=== PATIENT | male | born 1995 | race Caucasian/White ===

== ENCOUNTER 2018-06-15 02:36 | Inpatient (IN) | payer MEDICAID ==
[~2018-06-15] VITALS: Ht 157.5 cm; Wt 59.7 kg
[2018-06-15 03:16] LABS: BASOPHILS % (AUTO) 0.4 % (0.0-2.0); EOSINOPHILS % (AUTO) 1.9 % (1.0-6.0); HEMATOCRIT 46.1 % (41-53); HEMOGLOBIN 15.9 g/dL (13.5-17.5); LYMPHOCYTES # (AUTO) 1.6 K/uL (1.0-4.8); LYMPHOCYTES % (AUTO) 16.6 % (22.0-44.0); MEAN CORPUSCULAR HEMOGLOBIN 32.2 pg (26.0-34.0); MEAN CORPUSCULAR HGB CONC 34.5 G/dL (31.0-37.0); MEAN CORPUSCULAR VOLUME 93 fL (80-100); MONOCYTES # (AUTO) 0.8 K/uL (0.1-1.0); MONOCYTES % (AUTO) 7.8 % (2.0-9.0); NEUTROPHILS # (AUTO) 7.1 K/uL (1.8-7.7); NEUTROPHILS % (AUTO) 73.3 % (40.0-70.0); PLATELET COUNT (AUTO) 373 K/uL (150-450); RED BLOOD CELL COUNT(AUTO) 4.94 MIL/uL (4.50-5.90); RED CELL DISTRIBUTION WIDTH 12.7 % (11.5-14.5)
[2018-06-15 03:22] LABS: ANION GAP 8 mmol/L (8-16); CALCIUM, TOTAL 9.4 mg/dL (8.8-10.5); CARBON DIOXIDE 28 mmol/L (22-29); CHLORIDE 103 mmol/L (98-107); CREATININE 0.86 mg/dL (0.60-1.30); GLOMERULAR FILTR. RATE CALC > 60 mL/min (>60); GLUCOSE,RANDOM 107 mg/dL (70-110); SODIUM SERUM 139 mmol/L (136-145); UREA NITROGEN, BLOOD 16 mg/dL (7-18)
[2018-06-15 03:28] LABS: ALANINE AMINOTRANSFERASE 96 U/L (12-78); ALBUMIN 4.3 g/dL (3.4-5.0); ALKALINE PHOSPHATASE 97 U/L (46-116); ASPARTATE AMINOTRANSFERASE 35 U/L (15-37); BILIRUBIN,TOTAL 0.3 mg/dL (0.1-1.0); TOTAL PROTEIN, SERUM 8.5 g/dL (6.4-8.2)
[2018-06-15 03:29] LABS: AMPHET/METH SCREEN,URINE NEGATIVE (NEGATIVE); BARBITURATE SCREEN, URINE NEGATIVE (NEGATIVE); BENZODIAZEPINES SCREEN,URINE NEGATIVE (NEGATIVE); CANNABINOID SCREEN,URINE NEGATIVE (NEGATIVE); COCAINE SCREEN,URINE NEGATIVE (NEGATIVE); METHADONE SCREEN, URINE NEGATIVE (NEGATIVE); OPIATE SCREEN,URINE NEGATIVE (NEGATIVE)
[2018-06-15 03:34] LABS: PHENCYCLIDINE SCREEN,URINE NEGATIVE (NEGATIVE)
[2018-06-15] MEDS ORDERED: ACETAMINOPHEN 325 MG TABLET PO PRN (11:00)
[2018-06-15] MEDS ORDERED: MAG HYDROX/AL HYDROX/SIMETH ES 30 ML SUSPENSION UDCUP PO PRN (11:00)
[2018-06-15] MEDS ORDERED: GuaiFENesin/D-METHORPHAN [SUGAR-FREE] 200-20MG/10 ML SYRUP UDCUP PO PRN (11:00)
[2018-06-15] MEDS ORDERED: HydrOXYzine PAMOATE 50 MG CAPSULE PO PRN (11:00)
[2018-06-15] MEDS ORDERED: PROMETHAZINE HCL 25 MG TABLET PO PRN (11:00)
[2018-06-15] MEDS ORDERED: LOPERAMIDE HCL 2 MG CAPSULE PO PRN (11:00)
[2018-06-15] MEDS ORDERED: TUBERCULIN, PURIFIED PROTEIN DERIVATIVE 5 TU/0.1 ML SYG ID ONE (11:00)
[2018-06-15] MEDS ORDERED: MAGNESIUM HYDROXIDE SUSPENSION 30 ML UDCUP PO PRN (11:00)
[2018-06-15 16:08] VITALS: BP 121/53
[2018-06-15 20:03] VITALS: BP 122/69
[2018-06-15] MEDS: THIAMINE HCL 100 MG TABLET PO SCH (21:00)
[2018-06-16 00:10] VITALS: BP 117/67
[2018-06-16] MEDS: ZOLPIDEM TARTRATE 10 MG TABLET PO PRN (00:43)
[2018-06-16] MEDS: LORazepam 2 MG TABLET PO PRN (00:43)
[2018-06-16] MEDS: FOLIC ACID 1 MG TABLET PO SCH (09:09)
[2018-06-16] MEDS: NALTREXONE HCL 50 MG TABLET PO SCH (09:10)
[2018-06-16] MEDS: FLUoxetine HCL 20 MG CAPSULE PO SCH (09:10)
[2018-06-16] MEDS: THIAMINE HCL 100 MG TABLET PO SCH ×2 (09:11→16:16)
[2018-06-16] MEDS: MULTIVITAMINS WITH MINERALS, THERAPEUTIC TABLET PO SCH (09:11)
[2018-06-16 09:34] VITALS: BP 124/61
[2018-06-16 16:21] VITALS: BP 108/60
[2018-06-17 00:23] VITALS: BP 128/71
[2018-06-17] MEDS: MULTIVITAMINS WITH MINERALS, THERAPEUTIC TABLET PO SCH (08:25)
[2018-06-17] MEDS: THIAMINE HCL 100 MG TABLET PO SCH ×2 (08:25→16:24)
[2018-06-17] MEDS: FLUoxetine HCL 20 MG CAPSULE PO SCH (08:25)
[2018-06-17] MEDS: FOLIC ACID 1 MG TABLET PO SCH (08:25)
[2018-06-17] MEDS: NALTREXONE HCL 50 MG TABLET PO SCH (08:25)
[2018-06-17 10:17] VITALS: BP 113/61
[2018-06-17 16:10] VITALS: BP 116/80
[2018-06-18 03:07] VITALS: BP 117/61
[2018-06-18] MEDS: FLUoxetine HCL 20 MG CAPSULE PO SCH (08:49)
[2018-06-18] MEDS: FOLIC ACID 1 MG TABLET PO SCH (08:49)
[2018-06-18] MEDS: MULTIVITAMINS WITH MINERALS, THERAPEUTIC TABLET PO SCH (08:49)
[2018-06-18] MEDS: THIAMINE HCL 100 MG TABLET PO SCH ×2 (08:49→16:19)
[2018-06-18] MEDS: NALTREXONE HCL 50 MG TABLET PO SCH (08:49)
[2018-06-18 09:05] VITALS: BP 118/72
[2018-06-18 16:46] VITALS: BP 139/77
[2018-06-18] MEDS: ZOLPIDEM TARTRATE 10 MG TABLET PO PRN (22:02)
[2018-06-19 05:05] VITALS: BP 127/68
[2018-06-19 08:26] VITALS: BP 129/61
[2018-06-19] MEDS: THIAMINE HCL 100 MG TABLET PO SCH ×2 (08:26→16:03)
[2018-06-19] MEDS: FOLIC ACID 1 MG TABLET PO SCH (08:26)
[2018-06-19] MEDS: NALTREXONE HCL 50 MG TABLET PO SCH (08:26)
[2018-06-19] MEDS: MULTIVITAMINS WITH MINERALS, THERAPEUTIC TABLET PO SCH (08:26)
[2018-06-19] MEDS ORDERED: SERTRALINE HCL 50 MG TABLET PO SCH (09:00)
[2018-06-19 16:51] VITALS: BP 122/67
[2018-06-19] MEDS: ZOLPIDEM TARTRATE 10 MG TABLET PO PRN (22:00)
[2018-06-20 06:57] VITALS: BP 119/70
[2018-06-20] MEDS: FOLIC ACID 1 MG TABLET PO SCH (08:16)
[2018-06-20] MEDS: SERTRALINE HCL 100 MG TABLET PO SCH (08:16)
[2018-06-20] MEDS: MULTIVITAMINS WITH MINERALS, THERAPEUTIC TABLET PO SCH (08:16)
[2018-06-20] MEDS: NALTREXONE HCL 50 MG TABLET PO SCH (08:16)
[2018-06-20] MEDS: THIAMINE HCL 100 MG TABLET PO SCH ×2 (08:16→16:24)
[2018-06-20 08:44] VITALS: BP 121/71
[2018-06-20 17:12] VITALS: BP 135/75
[2018-06-20] MEDS: ZOLPIDEM TARTRATE 10 MG TABLET PO PRN (22:16)
[2018-06-21 05:33] VITALS: BP 126/72
[2018-06-21] MEDS: FOLIC ACID 1 MG TABLET PO SCH (08:04)
[2018-06-21] MEDS: MULTIVITAMINS WITH MINERALS, THERAPEUTIC TABLET PO SCH (08:04)
[2018-06-21] MEDS: NALTREXONE HCL 50 MG TABLET PO SCH (08:04)
[2018-06-21] MEDS: THIAMINE HCL 100 MG TABLET PO SCH ×2 (08:04→16:02)
[2018-06-21] MEDS: SERTRALINE HCL 100 MG TABLET PO SCH (08:04)
[2018-06-21 08:19] VITALS: BP 127/61
[2018-06-21] MEDS: BACITRACIN 28.4 GM OINTMENT TP SCH ×2 (09:09→16:02)
[2018-06-21 16:14] VITALS: BP 115/60
[2018-06-22 00:05] VITALS: BP 127/87
[2018-06-22] MEDS: ZOLPIDEM TARTRATE 10 MG TABLET PO PRN ×2 (00:10→21:20)
[2018-06-22 08:08] VITALS: BP 138/65
[2018-06-22] MEDS: SERTRALINE HCL 100 MG TABLET PO SCH (08:35)
[2018-06-22] MEDS: MULTIVITAMINS WITH MINERALS, THERAPEUTIC TABLET PO SCH (08:36)
[2018-06-22] MEDS: NALTREXONE HCL 50 MG TABLET PO SCH (08:36)
[2018-06-22] MEDS: FOLIC ACID 1 MG TABLET PO SCH (08:36)
[2018-06-22] MEDS: THIAMINE HCL 100 MG TABLET PO SCH ×2 (08:36→16:18)
[2018-06-22] MEDS: BACITRACIN 28.4 GM OINTMENT TP SCH ×2 (08:36→16:18)
[2018-06-22 16:08] VITALS: BP 130/71
[2018-06-23 05:21] VITALS: BP 129/75
[2018-06-23 08:26] VITALS: BP 135/60
[2018-06-23] MEDS: THIAMINE HCL 100 MG TABLET PO SCH ×2 (08:30→16:18)
[2018-06-23] MEDS: NALTREXONE HCL 50 MG TABLET PO SCH (08:30)
[2018-06-23] MEDS: FOLIC ACID 1 MG TABLET PO SCH (08:30)
[2018-06-23] MEDS: SERTRALINE HCL 100 MG TABLET PO SCH (08:31)
[2018-06-23] MEDS: MULTIVITAMINS WITH MINERALS, THERAPEUTIC TABLET PO SCH (08:31)
[2018-06-23] MEDS: BACITRACIN 28.4 GM OINTMENT TP SCH ×2 (08:31→16:19)
[2018-06-23] MEDS: ARIPiprazole 2 MG TABLET PO SCH (08:33)
[2018-06-23 12:10] VITALS: BP 126/83
[2018-06-23 16:18] VITALS: BP 139/69
[2018-06-23] MEDS: ZOLPIDEM TARTRATE 10 MG TABLET PO PRN (22:18)
[2018-06-24 01:24] VITALS: BP 117/68
[2018-06-24] MEDS: NALTREXONE HCL 50 MG TABLET PO SCH (08:11)
[2018-06-24] MEDS: THIAMINE HCL 100 MG TABLET PO SCH ×2 (08:11→16:10)
[2018-06-24] MEDS: MULTIVITAMINS WITH MINERALS, THERAPEUTIC TABLET PO SCH (08:11)
[2018-06-24] MEDS: BACITRACIN 28.4 GM OINTMENT TP SCH ×2 (08:11→16:11)
[2018-06-24] MEDS: FOLIC ACID 1 MG TABLET PO SCH (08:11)
[2018-06-24] MEDS: SERTRALINE HCL 100 MG TABLET PO SCH (08:11)
[2018-06-24] MEDS: ARIPiprazole 2 MG TABLET PO SCH (08:12)
[2018-06-24 09:11] VITALS: BP 129/70
[2018-06-24 16:04] VITALS: BP 130/74
[2018-06-24] MEDS: ZOLPIDEM TARTRATE 10 MG TABLET PO PRN (21:19)
[2018-06-25 00:38] VITALS: BP 114/60
[2018-06-25] MEDS: FOLIC ACID 1 MG TABLET PO SCH (08:18)
[2018-06-25] MEDS: SERTRALINE HCL 100 MG TABLET PO SCH (08:18)
[2018-06-25] MEDS: NALTREXONE HCL 50 MG TABLET PO SCH (08:18)
[2018-06-25] MEDS: MULTIVITAMINS WITH MINERALS, THERAPEUTIC TABLET PO SCH (08:18)
[2018-06-25] MEDS: ARIPiprazole 2 MG TABLET PO SCH (08:18)
[2018-06-25] MEDS: BACITRACIN 28.4 GM OINTMENT TP SCH ×2 (08:19→16:21)
[2018-06-25 08:22] VITALS: BP 125/73
[2018-06-25 16:14] VITALS: BP 139/67
[2018-06-25] MEDS: ZOLPIDEM TARTRATE 10 MG TABLET PO PRN (20:15)
[2018-06-26 06:09] VITALS: BP 123/62
[2018-06-26] MEDS: MULTIVITAMINS WITH MINERALS, THERAPEUTIC TABLET PO SCH (08:19)
[2018-06-26] MEDS: SERTRALINE HCL 100 MG TABLET PO SCH (08:19)
[2018-06-26] MEDS: NALTREXONE HCL 50 MG TABLET PO SCH (08:19)
[2018-06-26] MEDS: ARIPiprazole 2 MG TABLET PO SCH (08:19)
[2018-06-26] MEDS: BACITRACIN 28.4 GM OINTMENT TP SCH ×2 (08:21→17:00)
[2018-06-26 08:38] VITALS: BP 134/76
[2018-06-26 16:01] VITALS: BP 133/79
[2018-06-26] MEDS: ZOLPIDEM TARTRATE 10 MG TABLET PO PRN (20:17)
[2018-06-26] MEDS: LORazepam 2 MG TABLET PO PRN (22:11)
[2018-06-27 06:41] VITALS: BP 140/92
[2018-06-27 08:21] VITALS: BP 111/56
[2018-06-27] MEDS: ARIPiprazole 2 MG TABLET PO SCH (08:47)
[2018-06-27] MEDS: NALTREXONE HCL 50 MG TABLET PO SCH (08:47)
[2018-06-27] MEDS: MULTIVITAMINS WITH MINERALS, THERAPEUTIC TABLET PO SCH (08:47)
[2018-06-27] MEDS: SERTRALINE HCL 100 MG TABLET PO SCH (08:47)
[2018-06-27] MEDS: BACITRACIN 28.4 GM OINTMENT TP SCH ×2 (09:06→16:12)
[2018-06-27] MEDS: LORazepam 2 MG TABLET PO PRN ×2 (10:59→18:38)
[2018-06-27] MEDS: QUEtiapine FUMARATE 100 MG TABLET PO PRN ×2 (10:59→18:38)
[2018-06-27 16:08] VITALS: BP 105/60
[2018-06-28 04:13] VITALS: BP 118/67
[2018-06-28 08:16] VITALS: BP 106/61
[2018-06-28] MEDS: MULTIVITAMINS WITH MINERALS, THERAPEUTIC TABLET PO SCH (08:32)
[2018-06-28] MEDS: ARIPiprazole 2 MG TABLET PO SCH (08:32)
[2018-06-28] MEDS: NALTREXONE HCL 50 MG TABLET PO SCH (08:32)
[2018-06-28] MEDS: SERTRALINE HCL 100 MG TABLET PO SCH (08:33)
[2018-06-28] MEDS: BACITRACIN 28.4 GM OINTMENT TP SCH ×2 (08:34→16:02)
[2018-06-28] MEDS: LORazepam 2 MG TABLET PO PRN ×2 (11:51→17:12)
[2018-06-28 16:42] VITALS: BP 133/88
[2018-06-28] MEDS: ZOLPIDEM TARTRATE 10 MG TABLET PO PRN (20:39)
[2018-06-28] MEDS: QUEtiapine FUMARATE 100 MG TABLET PO PRN (21:55)
[2018-06-29 00:39] VITALS: BP 112/82
[2018-06-29 08:30] VITALS: BP 105/62
[2018-06-29] MEDS: ARIPiprazole 2 MG TABLET PO SCH (08:59)
[2018-06-29] MEDS: SERTRALINE HCL 100 MG TABLET PO SCH (08:59)
[2018-06-29] MEDS: MULTIVITAMINS WITH MINERALS, THERAPEUTIC TABLET PO SCH (08:59)
[2018-06-29] MEDS: NALTREXONE HCL 50 MG TABLET PO SCH (08:59)
[2018-06-29] MEDS: BACITRACIN 28.4 GM OINTMENT TP SCH (09:00)
[2018-06-29] MEDS ORDERED: ARIP2 PO ×2 (15:14→15:41)
[2018-06-29] MEDS ORDERED: NALT50TA PO (15:14)
[2018-06-29] MEDS ORDERED: SERT100T12 PO (15:14)
== END 2018-06-29 16:45 | disposition home or self-care (01) | DRG 751 ==
LOC: EMS 02:38 → EDSEX 02:38 → AHU 15:38 → B2S 21:46
PROVIDERS: ADMIT Psychiatry & Neurology Psychiatry; ATTEND Psychiatry & Neurology Psychiatry
DX: F33.2 Major depressive disorder, recurrent severe without psychotic features (principal); R45.851 Suicidal ideations; Z91.19 Patient's noncompliance with other medical treatment and regimen; Z28.21 Immunization not carried out because of patient refusal; F17.200 Nicotine dependence, unspecified, uncomplicated; F12.90 Cannabis use, unspecified, uncomplicated; R79.89 Other specified abnormal findings of blood chemistry; G47.00 Insomnia, unspecified; F41.9 Anxiety disorder, unspecified
CPT/HCPCS: 94640; G0480

== ENCOUNTER 2018-07-02 19:44 | Inpatient (IN) | payer MEDICAID ==
[~2018-07-02] VITALS: Ht 157.5 cm; Wt 59.4 kg
[~2018-07-02 19:44] MED LIST: ARIP2 PO; NALT50TA PO; SERT100T12 PO
[2018-07-02 21:09] LABS: BASOPHILS % (AUTO) 0.3 % (0.0-2.0); EOSINOPHILS % (AUTO) 0.6 % (1.0-6.0); HEMATOCRIT 42.6 % (41-53); HEMOGLOBIN 14.8 g/dL (13.5-17.5); LYMPHOCYTES # (AUTO) 1.6 K/uL (1.0-4.8); LYMPHOCYTES % (AUTO) 20.4 % (22.0-44.0); MEAN CORPUSCULAR HEMOGLOBIN 32.1 pg (26.0-34.0); MEAN CORPUSCULAR HGB CONC 34.7 G/dL (31.0-37.0); MEAN CORPUSCULAR VOLUME 93 fL (80-100); MONOCYTES # (AUTO) 0.7 K/uL (0.1-1.0); MONOCYTES % (AUTO) 8.8 % (2.0-9.0); NEUTROPHILS # (AUTO) 5.5 K/uL (1.8-7.7); NEUTROPHILS % (AUTO) 69.9 % (40.0-70.0); PLATELET COUNT (AUTO) 365 K/uL (150-450); RED CELL DISTRIBUTION WIDTH 13.1 % (11.5-14.5)
[2018-07-02 21:20] LABS: ANION GAP 9 mmol/L (8-16); CARBON DIOXIDE 26 mmol/L (22-29); CHLORIDE 104 mmol/L (98-107); GLOMERULAR FILTR. RATE CALC > 60 mL/min (>60); GLUCOSE,RANDOM 111 mg/dL (70-110); POTASSIUM 3.5 mmol/L (3.5-5.1); SODIUM SERUM 139 mmol/L (136-145); UREA NITROGEN, BLOOD 14 mg/dL (7-18)
[2018-07-02 21:26] LABS: ALANINE AMINOTRANSFERASE 36 U/L (12-78); ALBUMIN 3.9 g/dL (3.4-5.0); ALKALINE PHOSPHATASE 86 U/L (46-116); ASPARTATE AMINOTRANSFERASE 28 U/L (15-37); BILIRUBIN,TOTAL 0.4 mg/dL (0.1-1.0); TOTAL PROTEIN, SERUM 7.6 g/dL (6.4-8.2)
[2018-07-02] MEDS ORDERED: LORazepam 2 MG TABLET PO ONE (21:45)
[2018-07-02] MEDS ORDERED: LORazepam 2 MG TABLET PO PRN (22:00)
[2018-07-02] MEDS ORDERED: QUEtiapine FUMARATE 100 MG TABLET PO PRN (22:00)
[2018-07-03 00:30] VITALS: BP 126/81
[2018-07-03] MEDS: ZOLPIDEM TARTRATE 10 MG TABLET PO PRN ×2 (00:41→20:10)
[2018-07-03 08:25] VITALS: BP 116/64
[2018-07-03] MEDS ORDERED: ACETAMINOPHEN 325 MG TABLET PO PRN (12:00)
[2018-07-03] MEDS ORDERED: PROMETHAZINE HCL 25 MG TABLET PO PRN (12:00)
[2018-07-03] MEDS ORDERED: MAG HYDROX/AL HYDROX/SIMETH ES 30 ML SUSPENSION UDCUP PO PRN (12:00)
[2018-07-03] MEDS ORDERED: MAGNESIUM HYDROXIDE SUSPENSION 30 ML UDCUP PO PRN (12:00)
[2018-07-03] MEDS ORDERED: GuaiFENesin/D-METHORPHAN [SUGAR-FREE] 200-20MG/10 ML SYRUP UDCUP PO PRN (12:00)
[2018-07-03] MEDS ORDERED: HydrOXYzine PAMOATE 50 MG CAPSULE PO PRN (12:00)
[2018-07-03] MEDS ORDERED: LOPERAMIDE HCL 2 MG CAPSULE PO PRN (12:00)
[2018-07-03] MEDS ORDERED: LORazepam 1 MG TABLET PO PRN (14:00)
[2018-07-03] MEDS: THIAMINE HCL 100 MG TABLET PO SCH (16:10)
[2018-07-03 16:11] VITALS: BP 111/72
[2018-07-04 00:42] VITALS: BP 112/63
[2018-07-04] MEDS: NALTREXONE HCL 50 MG TABLET PO SCH (08:18)
[2018-07-04] MEDS: MULTIVITAMINS WITH MINERALS, THERAPEUTIC TABLET PO SCH (08:18)
[2018-07-04] MEDS: SERTRALINE HCL 100 MG TABLET PO SCH (08:19)
[2018-07-04] MEDS: THIAMINE HCL 100 MG TABLET PO SCH ×2 (08:19→16:12)
[2018-07-04] MEDS: QUEtiapine FUMARATE 25 MG TABLET PO PRN (08:19)
[2018-07-04] MEDS: FOLIC ACID 1 MG TABLET PO SCH (08:19)
[2018-07-04] MEDS: ARIPiprazole 2 MG TABLET PO SCH (08:19)
[2018-07-04 08:25] LABS: BASOPHILS % (AUTO) 0.4 % (0.0-2.0); EOSINOPHILS % (AUTO) 3.3 % (1.0-6.0); HEMATOCRIT 42.1 % (41-53); HEMOGLOBIN 14.6 g/dL (13.5-17.5); LYMPHOCYTES # (AUTO) 1.7 K/uL (1.0-4.8); LYMPHOCYTES % (AUTO) 28.6 % (22.0-44.0); MEAN CORPUSCULAR HEMOGLOBIN 32.3 pg (26.0-34.0); MEAN CORPUSCULAR HGB CONC 34.7 G/dL (31.0-37.0); MEAN CORPUSCULAR VOLUME 93 fL (80-100); MONOCYTES # (AUTO) 0.5 K/uL (0.1-1.0); MONOCYTES % (AUTO) 7.6 % (2.0-9.0); NEUTROPHILS # (AUTO) 3.6 K/uL (1.8-7.7); NEUTROPHILS % (AUTO) 60.1 % (40.0-70.0); PLATELET COUNT (AUTO) 330 K/uL (150-450); RED BLOOD CELL COUNT(AUTO) 4.53 MIL/uL (4.50-5.90); RED CELL DISTRIBUTION WIDTH 13.1 % (11.5-14.5)
[2018-07-04 08:29] VITALS: BP 111/66
[2018-07-04 08:45] LABS: CHOL/HDL RATIO 3.4 (4.2-7.3); FREE T4 (FREE THYROXINE) 0.82 ng/dL (0.76-1.46); THYROID STIMULATING HORMONE 0.94 uIU/mL (0.36-3.74)
[2018-07-04 08:47] LABS: ALANINE AMINOTRANSFERASE 38 U/L (12-78); ALBUMIN 3.3 g/dL (3.4-5.0); ALKALINE PHOSPHATASE 70 U/L (46-116); ANION GAP 8 mmol/L (8-16); ASPARTATE AMINOTRANSFERASE 26 U/L (15-37); BILIRUBIN,TOTAL 0.6 mg/dL (0.1-1.0); CALCIUM, TOTAL 8.6 mg/dL (8.8-10.5); CARBON DIOXIDE 29 mmol/L (22-29); CHLORIDE 104 mmol/L (98-107); CREATININE 0.57 mg/dL (0.60-1.30); GLOMERULAR FILTR. RATE CALC > 60 mL/min (>60); GLUCOSE,RANDOM 83 mg/dL (70-110); POTASSIUM 3.3 mmol/L (3.5-5.1); SODIUM SERUM 141 mmol/L (136-145); TOTAL PROTEIN, SERUM 6.6 g/dL (6.4-8.2); UREA NITROGEN, BLOOD 13 mg/dL (7-18)
[2018-07-04] MEDS ORDERED: POTASSIUM CHLORIDE 20 MEQ ER TABLET PO ONE ×2 (09:15→17:15)
[2018-07-04 16:10] VITALS: BP 112/87
[2018-07-04] MEDS: ZOLPIDEM TARTRATE 10 MG TABLET PO PRN (20:35)
[2018-07-05 03:05] VITALS: BP 114/86
[2018-07-05 08:18] VITALS: BP 106/63
[2018-07-05] MEDS: NALTREXONE HCL 50 MG TABLET PO SCH (08:34)
[2018-07-05] MEDS: THIAMINE HCL 100 MG TABLET PO SCH ×2 (08:34→16:05)
[2018-07-05] MEDS: ARIPiprazole 2 MG TABLET PO SCH (08:35)
[2018-07-05] MEDS: MULTIVITAMINS WITH MINERALS, THERAPEUTIC TABLET PO SCH (08:35)
[2018-07-05] MEDS: FOLIC ACID 1 MG TABLET PO SCH (08:35)
[2018-07-05] MEDS: SERTRALINE HCL 100 MG TABLET PO SCH (08:35)
[2018-07-05] MEDS: QUEtiapine FUMARATE 25 MG TABLET PO PRN (10:46)
[2018-07-05] MEDS ORDERED: POTASSIUM CHLORIDE 20 MEQ ER TABLET PO ONE ×2 (15:00)
[2018-07-05 17:51] VITALS: BP 130/74
[2018-07-05] MEDS: ZOLPIDEM TARTRATE 10 MG TABLET PO PRN (21:16)
[2018-07-06 05:35] VITALS: BP 124/68
[2018-07-06 08:18] VITALS: BP 110/61
[2018-07-06] MEDS ORDERED: ARIPiprazole 5 MG TABLET PO SCH (09:00)
[2018-07-06] MEDS: SERTRALINE HCL 100 MG TABLET PO SCH (09:16)
[2018-07-06] MEDS: FOLIC ACID 1 MG TABLET PO SCH (09:16)
[2018-07-06] MEDS: THIAMINE HCL 100 MG TABLET PO SCH (09:17)
[2018-07-06] MEDS: NALTREXONE HCL 50 MG TABLET PO SCH (09:17)
[2018-07-06] MEDS: MULTIVITAMINS WITH MINERALS, THERAPEUTIC TABLET PO SCH (09:17)
[2018-07-06] MEDS ORDERED: SERT100T12 PO ×2 (13:23→13:44)
[2018-07-06] MEDS ORDERED: NALT50TA PO (13:23)
[2018-07-06] MEDS ORDERED: NALT50TA6 PO (13:44)
[2018-07-06 16:14] VITALS: BP 127/68
== END 2018-07-06 14:20 | disposition home or self-care (01) | DRG 751 ==
LOC: EMS 19:45 → B2S 23:06
PROVIDERS: ADMIT Psychiatry & Neurology Psychiatry; ATTEND Psychiatry & Neurology Psychiatry
DX: F33.2 Major depressive disorder, recurrent severe without psychotic features (principal); R45.851 Suicidal ideations; Z91.19 Patient's noncompliance with other medical treatment and regimen; F17.210 Nicotine dependence, cigarettes, uncomplicated; F12.90 Cannabis use, unspecified, uncomplicated; F41.9 Anxiety disorder, unspecified; R79.89 Other specified abnormal findings of blood chemistry; Z59.9 Problem related to housing and economic circumstances, unspecified; Z65.3 Problems related to other legal circumstances; Z79.899 Other long term (current) drug therapy
CPT/HCPCS: 83036; 84132; 84439; 84443; 87081; 99406; G0480